=== PATIENT | female | born 1970 | race Caucasian/White ===

== ENCOUNTER 2021-05-21 14:18 | Outpatient (CLI) | payer MEDICAID, SELFPAY ==
--- NOTE | 2021-05-21 14:25 | XR_ITS ---
WS: [id number] Left shoulder, 3 views, 05/21/2021 Clinical Data: IMPINGEMENT SYNDROME OF LEFT SHOULDER Comparison: None. Findings: No fractures or dislocations are seen. The AC joint is normal. The adjacent left clavicle, left scapu la and ribs are normal. The soft tissues are unremarkable. There is a metal artifact overlying the left fifth rib which is probably on the patient's clothing. XR/XR shoulder LT min 2V* [id number] Impression: Negative left shoulder.
== END 2021-05-21 14:19 | disposition home or self-care (01) ==
PROVIDERS: PCP Family Medicine; Visit Provider Family Medicine
DX: M75.42 Impingement syndrome of left shoulder (principal)
CPT/HCPCS: 73030

== ENCOUNTER 2021-05-25 11:41 | Emergency (ER) | payer MEDICAID, SELFPAY ==
[2021-05-25 11:53] VITALS: BP 132/80; PULSE 84; RESP 14; TEMP 36.9; O2SAT 96; BMI 34.4
--- NOTE | 2021-05-25 12:03 | XR_ITS ---
WS: [id number] Exam: XR chest 1V portable [id number] Date/Time of Exam: 05/25/2021 12:18 PM Reason For Exam: chest pain Comparison 01/17/2015. Findings: The lungs are clear and fully expanded. Costophrenic angles are sharp. No infiltrates. Bronchovascula r relief appears normal. Cardiac silhouette is unremarkable. Bony elements are intact. XR/XR chest 1V portable [id number] IMPRESSION: Unremarkable chest radiograph.
--- NOTE | 2021-05-25 12:03 | ECG_ITS ---
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1970 Requested By: Sona Gomez Order Number: [id number] Pam MD: ARTEMIO GALLARDO Measurements Intervals [place] Rate: 83 P: 38 ID: [id number] QRS: -28 QRSD: 97 T: 112 QT: 373 QTc: 439 Interpretive Statements SINUS RHYTHM BORDERLINE LEFT AXIS DEVIATION [QRS AXIS < -20] VOLTAGE CRITERIA FOR LVH [MEETS CRITERIA IN ONE OF: R(aVL), S(V1), R(V5), R(V5/V6)+S(V1)] MODERATE T-WAVE ABNORMALITY, CONSIDER LATERAL ISCHEMIA [-0.1+ mV T-WAVE IN I/aVL/V5/V6] Compared to ECG 01/17/2015 16:26:24 Left ventricular hypertrophy now present T-wave abnormality now present Possible ischemia now present Electronically Signed On 05-25-2021 19:58:19 [employer]PA[employer] by ARTEMIO GALLARDO [id number]
--- NOTE | 2021-05-25 14:03 | ECG_ITS ---
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1970 Requested By: Sona Gomez Order Number: [id number] Reading MD: ARTEMIO GALLARDO Measurements Intervals [place] Rate: 77 P: 49 [place]: 186 QRS: -39 QRSD: 100 T: 58 QT: 403 QTc: 457 Interpretive Statements SINUS RHYTHM LEFT AXIS DEVIATION [QRS AXIS < -30] NONSPECIFIC T-WAVE ABNORMALITY Compared to ECG 05/25/2021 12:05:30 Left ventricular hypertrophy no longer present Possible ischemia no longer present T-wave abnormality still present Electronically Signed On 05-25-2021 20:08:45 [employer] by ARTEMIO GALLARDO [id number]
[2021-05-25 14:05] LABS: Basophils % 0.5 %; Eosinophils # 0.3 10^3/uL (0.0-0.8); Eosinophils % 3.5 %; Hematocrit 43.1 % (37.0-47.0); Hemoglobin 14.2 g/dL (11.5-15.3); Lymphocytes # 1.6 10^3/uL (0.8-4.8); Lymphocytes % 18.3 %; Mean Corpuscular HGB Conc 32.9 g/dL (30.0-36.0); Mean Corpuscular Hemoglobin 26.3 pg (28.0-34.0); Mean Platelet Volume 11.4 fL (7.4-10.4); Monocytes # 0.6 10^3/uL (0.2-0.9); Neutrophils # 6.03 10^3/uL (1.8-7.7); Neutrophils % 70.3 %; Nucleated Red Blood Cells % 0 %; Platelet Count 292 10^3/cmm (130-400); Red Blood Count 5.39 10^6/uL (4.1-5.3); Red Cell Distribution Width 13.7 % (12.1-15.1); White Blood Count 8.6 10^3/uL (4.0-10.0)
[2021-05-25 14:46] LABS: Alanine Aminotransferase 28 U/L (0-33); Albumin Level 4.3 g/dL (3.5-5.2); Alkaline Phosphatase 79 IU/L (35-105); Anion Gap 19.6 (5-19); Aspartate Amino Transferase 22 U/L (0-32); Blood Urea Nitrogen 9 mg/dL (6-20); Calcium 9.2 mg/dL (8.5-10.5); Carbon Dioxide 26 mmol/L (22-29); Chloride 97 mmol/L (98-107); Globulin 3.4 g/dL (1.3-4.6); Glomerular Filtration Rate 75.6 mL/min (90-130); Glucose 112 mg/dL (65-115); Osmolality Calculated 287 mOsm/kg (285-295); Potassium 3.6 mmol/L (3.5-5.1); Sodium 139 mmol/L (136-145); Total Bilirubin 0.4 mg/dL (0.15-1.2); Total Protein 7.7 g/dL (6.6-8.7)
[2021-05-25 14:57] LABS: Troponin(5th) Baseline 16 ng/L (0-10)
[2021-05-25 16:45] VITALS: BP 139/78; PULSE 90; RESP 18; O2SAT 99
[2021-05-25 17:27] LABS: Troponin 5 2HR 16.11 ng/L (0-10); Troponin 5 2HR Delta 0.11 ABS# (0-10)
--- NOTE | 2021-05-25 17:47 | W.ED.CHESTPA ---
HPI - Chest Pain General: Chief Complaint: Chest Pain Stated Complaint: CHEST & ARM PAIN/COUGH Time Seen by Provider: 05/25/21 17:37 History of Present Illness: HPI narrative: 51-year-old female presents emergency room complaining of chest pain and she has had for about 6 to 8 hours. She states pain is worse when she takes a deep breath or when she palpates across the chest on the right upper sternal border. She has had cough which she attributes to her asthma and low-grade fever cough is been nonproductive she denies any diarrhea. She denies any myalgias denies any anosmia. She has not been vaccinated for Covid nor is she previously tested positive. MD complaint: chest discomfort Onset (ago): hour(s) Timing of current episode: episodic Onset: during rest Pain location: left chest Pain radiation: left arm (Tingling) Severity: mild Quality: aching Relieving factors: rest Exacerbating factors: inspiration and palpation Associated symptoms: Deny abdominal pain, diaphoresis, dyspnea, fever(s), leg edema, nausea, palpitations, sense of impending doom, syncope or vomiting Treatment prior to arrival: none Review of Systems Const: Denies: fever(s) or diaphoresis ENMT: Denies: throat pain, ear or mastoid pain, nasal discharge or nasal congestion Card: Denies: palpitations or syncope Resp: Denies: dyspnea GI: Denies: abdominal pain, nausea or vomiting : Denies: flank pain, difficulty voiding, dysuria, urinary frequency or urinary urgency Skin/Breast: Denies: rash or pruritus Physical Exam Const: COMMON NORMALS: no acute distress GENERAL APPEARANCE: cooperative and comfortable ORIENTATION/CONSCIOUSNESS: Yes awake, Yes oriented to person, Yes oriented to place and Yes oriented to time HENMT: COMMON NORMALS: normocephalic, atraumatic and hearing grossly normal bilaterally HEAD & SCALP: normocephalic and atraumatic Neck/C-Spine: COMMON NORMALS: no JVD Resp: COMMON NORMALS: normal respiratory effort, No retractions, No use of accessory muscles and clear to auscultation bilaterally AUSCULTATION: clear to auscultation bilaterally Cardio: COMMON NORMALS: no JVD, regular rate, regular rhythm and No murmurs present (Cardio) RATE: regular rate RHYTHM: regular rhythm GI: COMMON NORMALS: Soft to palpation and No hepatosplenomegaly present AUSCULTATION: Yes normoactive bowel sounds PALPATION: Yes Soft to palpation, No Tenderness to palpation present (GI), No Guarding due to palpation present (GI) and Yes No hepatosplenomegaly present Extremity: COMMON NORMALS: normal to inspection, capillary refill normal, no clubbing, cyanosis or edema, no calf tenderness and no pedal edema Neuro: SENSORIUM/ORIENTATION: Yes oriented to person, Yes oriented to place and Yes oriented to time Skin: COMMON NORMALS: no rashes or lesions noted GENERAL SKIN EXAM: no rashes or lesions noted Course Vital Signs: Vital signs: Vital Signs Temperature 98.4 F 05/25/21 11:53 Pulse Rate 90 05/25/21 16:45 Respiratory Rate 18 05/25/21 16:45 Blood Pressure 139/78 05/25/21 16:45 Pulse Oximetry 99 05/25/21 16:45 MDM - Chest Pain MDM Narrative: Medical decision making narrative: Troponins unremarkable EKGs labs and imaging reviewed as found on the chart. Discussed with the patient. I am suspicious she may have Covid we have a PCR send out will wait until that is completed and then if it is negative set her up first Lexiscan sestamibi stress test she does have some asthma issues that may be a cause of some of her symptoms we will have her use a Medrol Dosepak and albuterol as needed I am going to ask her to start baby aspirin a day. She has worsening or change return to the emergency room. Lab Data: Labs: Lab Results 05/25/21 05/25/21 05/25/21 13:54 13:54 13:54 WBC 8.6 10^3/uL 10^3/ uL (4.0-10.0) RBC 5.39 10^6/uL H 10 ^6/uL (4.1-5.3) Hgb 14.2 g/dL g/dL (11.5-15.3) Hct 43.1 % % (37.0-47.0) MCV 80.0 fl L fl (81-99) MCH 26.3 pg L pg (28.0-34.0) MCHC 32.9 g/dL g/dL (30.0-36.0) RDW 13.7 % % (12.1-15.1) Plt Count 292 10^3/cmm 10^3 /cmm (130-400) MPV 11.4 fL H fL (7.4-10.4) Neut % (Auto) 70.3 % % Lymph % (Auto) 18.3 % % Wise % (Auto) 7.0 % % Eos % (Auto) 3.5 % % Baso % (Auto) 0.5 % % Neut # (Auto) 6.03 10^3/uL 10^3 /uL (1.8-7.7) Lymph # (Auto) 1.6 10^3/uL 10^3/ uL (0.8-4.8) Wise # (Auto) 0.6 10^3/uL 10^3/ uL (0.2-0.9) Eos # (Auto) 0.3 10^3/uL 10^3/ uL (0.0-0.8) Baso # (Auto) 0.0 10^3/uL 10^3/ uL (0.0-0.1) Nucleated RBC % (a uto) 0 % % Nucleated RBCs # 0.0 /100WBC /100W BC Sodium 139 mmol/L mmol/L (136-145) Potassium 3.6 mmol/L mmol/L (3.5-5.1) Chloride 97 mmol/L L mmol/ L (98-107) Carbon Dioxide 26 mmol/L mmol/L (22-29) Anion Gap 19.6 H (5-19) BUN 9 mg/dL mg/dL (6-20) Creatinine 0.8 mg/dL mg/dL (0.5-0.9) GFR Calculation 75.6 mL/min L mL/ min (90-130) Glucose 112 mg/dL mg/dL (65-115) Calculated Osmolal ity 287 mOsm/kg mOsm/ kg (285-295) Calcium 9.2 mg/dL mg/dL (8.5-10.5) Total Bilirubin 0.4 mg/dL mg/dL (0.15-1.2) AST 22 U/L U/L (0-32) ALT 28 U/L U/L (0-33) Alkaline Phosphata se 79 IU/L IU/L (35-105) Troponin T Baselin e 16 ng/L H ng/L (0-10) Troponin T 120 Min ag[place] Delta Troponin T Total Protein 7.7 g/dL g/dL (6.6-8.7) Albumin 4.3 g/dL g/dL (3.5-5.2) Globulin 3.4 g/dL g/dL (1.3-4.6) 05/25/21 16:41 WBC RBC Hgb Hct MCV MCH MCHC RDW Plt Count MPV Neut % (Auto) Lymph % (Auto) Wise % (Auto) Eos % (Auto) Baso % (Auto) Neut # (Auto) Lymph # (Auto) Wise # (Auto) Eos # (Auto) Baso # (Auto) Nucleated RBC % (a uto) Nucleated RBCs # Sodium Potassium Chloride Carbon Dioxide Anion Gap BUN Creatinine GFR Calculation Glucose Calculated Osmolal ity Calcium Total Bilirubin AST ALT Alkaline Phosphata se Troponin T Baselin e Troponin T 120 Min [place] 16.11 ng/L H ng/L (0-10) Delta Troponin T 0.11 ABS# ABS# (0-10) Total Protein Albumin Globulin Discharge Plan Discharge Patient Disposition: Home Clinical Impression: Atypical chest pain, Clinical diagnosis of COVID-19 Condition: Stable Prescriptions: New Medrol (Sotero) 4 mg tablets,dose pack See Rx Instructions .ROUTE .COMPLEX Qty: 21 RF: 0 albuterol sulfate 90 mcg/actuation HFA aerosol inhaler 2 inh INHALATION Q4H PRN (Reason: shortness of breath or wheezing) Qty: 18 RF: 0 aspirin 81 mg tablet,delayed release (DR/EC) 81 mg PO DAILY Qty: 30 RF: 0 Discharge Orders: Discharge ED (Routine); Ordered 05/25/21 Ordered By: Gurvinder Swanson Discharge Diet: Usual diet Discharge Activity: Limit activity as instructed Patient Instructions: Opioid Safety Activity Restrictions/Additional Instructions: public events facilities rental manager will call to make appointment for you to have a Lexiscan sestamibi stress test once your Covid test has resulted. If the Covid test is positive the stress test will have to wait until after the Covid has resolved. Use the prescribed medicines above to treat your symptoms. 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
--- NOTE | 2021-05-27 09:22 | DCPLANNER ---
Addendum entered by Maria Teresa Butler 07/01/21 15:19: Amy from centralized scheduling emailed power plant operators supervisor that patients insurance denied the order for stress test for patient. licensed psychologist manager called patient and informed patient that insurance denied the stress test. licensed psychologist manager encouraged patient that if she was still having issues to see her primary care provider. Original Note: licensed psychologist manager had message to schedule an outpatient stress test for patient. licensed psychologist manager faxed signed order to centralized scheduling, who will call patient with appointment information.
== END 2021-05-25 19:00 | disposition home or self-care (01) ==
PROVIDERS: Physician Assistant; Emergency Provider Family Medicine
DX: R07.89 Other chest pain (principal); U07.1 COVID-19; Z79.82 Long term (current) use of aspirin
CPT/HCPCS: 36415; 71045; 80053; 84484; 85025; 93005; 99282

== ENCOUNTER → 2021-08-26 11:39 | Outpatient (BNVA) | payer MEDICAID, SELFPAY | PROVIDERS: Visit Provider Family Medicine | DX: Z01.812 Encounter for preprocedural laboratory examination (principal); Z20.822 Contact with and (suspected) exposure to COVID-19 | CPT/HCPCS: 87635 ==

== ENCOUNTER 2021-09-08 10:44 | Outpatient (CLI) | payer MEDICAID, SELFPAY ==
--- NOTE | 2021-09-08 10:52 | MM_ITS ---
WS: [id number] SCREENING 3D TOMOSYNTHESIS DIGITAL MAMMOGRAM WITH CAD HISTORY: SCREENING COMPARISON: None available. Bilateral CC and MLO views submitted. Computer aided detection analyzed. Breast composition: There are scattered areas of fibroglandular density. No suspicious masses, microc alcifications or architectural distortion. MM/[place] [id number] IMPRESSION: BI-RADS: 1-Negative FOLLOW UP: 1 Year Follow-up
== END 2021-09-08 10:45 | disposition home or self-care (01) ==
PROVIDERS: Visit Provider Family Medicine
DX: Z12.31 Encounter for screening mammogram for malignant neoplasm of breast (principal)
CPT/HCPCS: 77063; 77067

== ENCOUNTER → 2021-09-09 11:48 | Outpatient (BNVA) | payer MEDICAID, SELFPAY | PROVIDERS: PCP Family Medicine; Visit Provider Internal Medicine | DX: R06.02 Shortness of breath (principal); I10 Essential (primary) hypertension; R07.9 Chest pain, unspecified | CPT/HCPCS: 99204 ==

== ENCOUNTER 2021-10-06 12:56 | Outpatient (RCR) | payer MEDICAID, SELFPAY | END 2021-10-16 23:59 | disposition home or self-care (01) | LOC: SPT 12:56 | PROVIDERS: PCP Family Medicine; Referring Provider Family Medicine; Visit Provider Family Medicine | DX: M75.42 Impingement syndrome of left shoulder (principal); G89.29 Other chronic pain; M54.2 Cervicalgia | CPT/HCPCS: 97161 ==

== ENCOUNTER 2021-10-17 06:00 | Outpatient (RCR) | payer MEDICAID, SELFPAY | END 2021-11-16 23:59 | disposition home or self-care (01) | LOC: SPT 06:00 | PROVIDERS: PCP Family Medicine; Referring Provider Family Medicine; Visit Provider Family Medicine | DX: M75.42 Impingement syndrome of left shoulder (principal); G89.29 Other chronic pain; M54.2 Cervicalgia | CPT/HCPCS: 97110 ==

== ENCOUNTER 2021-11-17 06:00 | Outpatient (RCR) | payer MEDICAID, SELFPAY | END 2021-12-16 23:59 | disposition home or self-care (01) | LOC: SPT 06:00 | PROVIDERS: PCP Family Medicine; Referring Provider Family Medicine; Visit Provider Family Medicine | DX: M75.42 Impingement syndrome of left shoulder (principal); G89.29 Other chronic pain; M54.2 Cervicalgia | CPT/HCPCS: 97110 ==

== ENCOUNTER 2021-12-17 06:00 | Outpatient (RCR) | payer MEDICAID, SELFPAY | END 2022-01-16 23:59 | disposition home or self-care (01) | LOC: SPT 06:00 | PROVIDERS: PCP Family Medicine; Referring Provider Family Medicine; Visit Provider Family Medicine | DX: M25.512 Pain in left shoulder (principal); M54.2 Cervicalgia | CPT/HCPCS: 97110 ==

== ENCOUNTER 2022-02-17 20:00 | Outpatient (CLI) | payer MEDICAID, SELFPAY | END 2022-02-17 20:01 | disposition home or self-care (01) | LOC: SLEEP 02-18 06:56 | PROVIDERS: PCP Family Medicine; Visit Provider Pediatrics | DX: G47.33 Obstructive sleep apnea (adult) (pediatric) (principal); R53.83 Other fatigue | CPT/HCPCS: 95811 ==

== ENCOUNTER 2022-02-24 07:22 | Day surgery (SDC) | payer MEDICAID, SELFPAY ==
[2022-02-23 08:42] VITALS: BMI 36.5
--- NOTE | 2022-02-24 07:48 | W.PM.OPSFHP ---
Same Day Surgery H&P Indication for Procedure/HPI DATE OF PROCEDURE: February 24, 2022 CHIEF COMPLAINT/INDICATIONFOR SURGICAL PROCEDURE: Screening colonoscopy PREOP DIAGNOSIS: Screening colonoscopy PLANNED PROCEDURE: Operation Date: 02/24/22 09:00 Proposed Procedures p Colonoscopy 39561,Z12.11(Not Applicable) - Vinayak Horta MD This is a pleasant 51 years old female patient referred to my practice for screening colonoscopy. She never had a colonoscopy before and denies bleeding per rectum or history of colon cancer. ROS All systems have been reviewed negative except as for the above or per problem list. Medications/Allergies* Home Medications Medication Instructions Recorded Confirmed Type amlodipine 10 mg tablet 10 mg PO DAILY 09/09/21 02/24/22 History escitalopram oxalate 20 mg tablet 20 mg PO DAILY 09/09/21 02/24/22 History fexofenadine 180 mg tablet 180 mg PO DAILY 09/09/21 02/24/22 History (Shima Allergy) fluticasone propionate 50 1 spray intranasal DAILY 09/09/21 02/24/22 History mcg/actuation nasal spray,suspension (Flonase Allergy Relief) hydrochlorothiazide 25 mg tablet 25 mg PO DAILY 09/09/21 02/24/22 History ibuprofen 200 mg tablet 600 mg PO BID 09/09/21 02/24/22 History lisinopril 20 mg tablet 20 mg PO DAILY 09/09/21 02/24/22 History mometasone-formoterol HFA 200 2 puff inhalation BID 09/09/21 02/24/22 History mcg-5 mcg/actuation aerosol inhaler (Dulera) montelukast 10 mg tablet 10 mg PO DAILY 09/09/21 02/24/22 History (Singulair) famotidine 20 mg tablet 20 mg PO BID 02/23/22 02/24/22 History Allergies/Adverse Reactions Allergy/AdvReac Type Severity Reaction Status Date / Time Penicillins Allergy Unknown Unknown Verified 02/24/22 08:57 ammonia Allergy ALGY-Rash Verified 02/24/22 08:57 Bleach (Sodium Hypochlorite) Allergy ALGY-Difficulty Verified 02/24/22 08:57 Breathing latex Allergy ALGY-Rash Verified 02/24/22 08:57 Pertinent History/Comorbid Conditions* Medical History (Updated 09/09/21 @ 13:16 by Lyle Paz M.D) HTN (hypertension) Psychiatric care Social History Smoking and tobacco status: never smoked Alcohol intake: never Pertinent Exam Findings alert, oriented x 3, clear to auscultation bilaterally, regular rate & rhythm and procedure specific exam findings (Abdominal examination nontender nondistended soft obese) Recommendations Surgery/Procedure today (Colonoscopy with possible biopsy) Other Plans: Plan of care; After thorough history and physical examination and reviewing the chart, plan to perform screening colonoscopy. I discussed with the patient in details the risks,benefits,alternatives and indications.The risk of aspiration, bleeding, soft tissue injury, perforation of the colon and other potential concomitant complications were explained to the patient in details,also the potential need for Laproscoy/Laparotomy to repair any related complications including but not limited to colectomy and or Closotomy.The patient understood this well and did agree to proceed. Rationale was carefully and clearly discussed with the patient.Appropriate informed consent have been reviewed and signed All questions have been answered and all concerns have been addressed to patient's satisfaction. 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
[2022-02-24 08:00] VITALS: BP 139/90; PULSE 92; RESP 16; TEMP 36.6; O2SAT 97
[2022-02-24] MEDS: sodium chloride 0.9% 1,000 ML 30 ML IV (08:14)
--- NOTE | 2022-02-24 09:09 | P.ANESASSM_ITS ---
Pre-Anesthetic Assessment Height/Weight: Height 1.73 m Weight 108.862 kg Temp Pulse Resp BP Pulse Ox O2 Del Method 97.8 F 92 16 139/90 97 02/24/22 08:00 02/24/22 08:00 02/24/22 08:00 02/24/22 08:00 02/24/22 08:00 02/24/22 08:00 Preop Diagnosis: Screening colonoscopy Operation Date: 02/24/22 09:00 Proposed Procedures p Colonoscopy 37881,Z12.11(Not Applicable) - Vinayak Horta MD Familial anesthetic complications: None Was Beta Irvin taken within 24 hours: N/A Was Clonidine taken within 24 hours: N/A Last intake: Intake Last Liquid Date 02/23/22 Last Liquid Time 22:30 Last Solid Date 02/22/22 Last Solid Time 11:00 Last Intake: 22:30 (02/23/22) Social No alcohol and No tobacco Exam alert, oriented x 3, clear to auscultation bilaterally and regular rate & rhythm Airway Submandibular: within normal limits Cervical ROM: within normal limits Mallampati: Class III Dentition: chipped (Several missing and rotting teeth. Supposed to have all teeth extracted on the of this month) History/ROS No significant history except as noted and No significant complaints Pulmonary Asthma (30% use of lungs per patient. Unsure of etiology), Chronic Obstructive Pulmonary Disease and Sleep Apnea (Does not use CPAP) CV/HEM Stable Angina (Has never used her nitroglycerin medication) and Palpitations None reported Hepatic None reported GI None reported Metabolic Diabetes Mellitus (Pre-diabetic per patient) and Morbid Obesity [facility] [place] Lower Back Pain Neuropsych Anxiety, Depression and Neuropathy Anesthetic Plan ASA status: 3 Anesthesia: Anesthesia Evaluation, General and MAC Risk of > 500 ml blood loss (7ml/kg in children): No Medications/Allergies Home Medications Medication Instructions Recorded Confirmed Last Taken Type albuterol sulfate 90 mcg/actuation 2 inh inhalation Q4H PRN shortness 05/25/21 02/24/22 02/23/22 Rx aerosol inhaler of breath or wheezing #18 grams aspirin 81 mg tablet,delayed 81 mg PO DAILY #30 tabs 05/25/21 02/24/22 02/23/22 Rx release amlodipine 10 mg tablet 10 mg PO DAILY 09/09/21 02/24/22 02/23/22 History escitalopram oxalate 20 mg tablet 20 mg PO DAILY 09/09/21 02/24/22 02/23/22 History fexofenadine 180 mg tablet 180 mg PO DAILY 09/09/21 02/24/22 02/23/22 History (Shima Allergy) fluticasone propionate 50 1 spray intranasal DAILY 09/09/21 02/24/22 02/23/22 History mcg/actuation nasal spray,suspension (Flonase Allergy Relief) hydrochlorothiazide 25 mg tablet 25 mg PO DAILY 09/09/21 02/24/22 02/23/22 History ibuprofen 200 mg tablet 600 mg PO BID 09/09/21 02/24/22 02/22/22 History lisinopril 20 mg tablet 20 mg PO DAILY 09/09/21 02/24/22 02/10/22 History mometasone-formoterol HFA 200 2 puff inhalation BID 09/09/21 02/24/22 02/23/22 History mcg-5 mcg/actuation aerosol inhaler (Dulera) montelukast 10 mg tablet 10 mg PO DAILY 09/09/21 02/24/22 02/23/22 History (Singulair) nitroglycerin 0.4 mg sublingual 0.4 mg sublingual Q5M PRN chest 09/09/21 02/24/22 Unknown Rx tablet pain #25 tabs famotidine 20 mg tablet 20 mg PO BID 02/23/22 02/24/22 02/23/22 History Allergies Allergy/AdvReac Type Severity Reaction Status Date / Time Penicillins Allergy Unknown Unknown Verified 02/24/22 08:57 ammonia Allergy ALGY-Rash Verified 02/24/22 08:57 Bleach (Sodium Hypochlorite) Allergy ALGY-Difficulty Verified 02/24/22 08:57 Breathing latex Allergy ALGY-Rash Verified 02/24/22 08:57 Current Medications Generic Name Dose Route Start Last Admin Trade Name Freq PRN Reason Stop Dose Admin Sodium Chloride 1,000 mls @ 30 mls/hr 02/24/22 07:45 02/24/22 08:14 Sodium Chloride 0.9% IV 02/25/22 07:44 30 mls/hr .Q24H DEEPAK Administration PFSH Anesthesia Medical History (Updated 09/09/21 @ 13:16 by Lyle Paz M.D) HTN (hypertension) Psychiatric care Social History Smoking and tobacco status: never smoked Alcohol intake: never Female Reproductive History Date of last menstrual period: 02/23/22 Data Anesthesia Cardiac Studies: No Data to Display
[2022-02-24 09:30] LABS: OR HCG Qualitative Urine Negative (Negative)
[2022-02-24 09:51] VITALS: BP 111/68; PULSE 70; RESP 16; TEMP 36.3; O2SAT 97
[2022-02-24 10:01] VITALS: BP 111/80; PULSE 66; RESP 16; O2SAT 95
== END 2022-02-24 10:16 | disposition home or self-care (01) ==
PROVIDERS: Anesthesiology; PCP Family Medicine; Visit Provider Surgery
PROC: 0DJD8ZZ Inspection of Lower Intestinal Tract, Via Natural or Artificial Opening Endoscopic (ICD-10-PCS; CPT 45378; principal; 2022-02-24 09:00)
DX: Z12.11 Encounter for screening for malignant neoplasm of colon (principal); I10 Essential (primary) hypertension; J44.9 Chronic obstructive pulmonary disease, unspecified; G47.30 Sleep apnea, unspecified; R73.03 Prediabetes; E66.01 Morbid (severe) obesity due to excess calories; Z68.36 Body mass index [BMI] 36.0-36.9, adult; Z79.51 Long term (current) use of inhaled steroids; Z88.0 Allergy status to penicillin; Z91.040 Latex allergy status
CPT/HCPCS: 45378; 84703; J2704; J7030

== ENCOUNTER 2022-11-18 11:15 | Outpatient (CLI) | payer MEDICAID, SELFPAY ==
--- NOTE | 2022-11-18 11:21 | MM_ITS ---
WS: [email or web address] VIEWS: MLO and CC views both breasts. 3D digital tomosynthesis is also included in this exam. Comparison made with prior exam of 09/08/2021. Findings: There was no sign of mass, architectural distortion or suspicious calcification in either breast. Sc attered areas of fibroglandular density MM/[place] [id number] Impression: BI-RADS: 2-Benign finding. FOLLOW-UP: 1 Year Follow-up This mammogram was also analyzed by the Computer Aided Detection System R2 Imag e Net Sql Developer.
== END 2022-11-18 11:16 | disposition home or self-care (01) ==
LOC: RAD 11:18
PROVIDERS: PCP Family Medicine; Visit Provider Family Medicine
DX: Z12.31 Encounter for screening mammogram for malignant neoplasm of breast (principal)
CPT/HCPCS: 77063; 77067

== ENCOUNTER 2024-02-24 15:10 | Emergency (ER) | payer MEDICARE, MEDICAID, SELFPAY ==
[2024-02-24 15:44] VITALS: BP 127/80; PULSE 74; RESP 17; TEMP 36.6; O2SAT 98; BMI 36.0
--- NOTE | 2024-02-24 16:18 | CTR_ITS ---
PROCEDURE INFORMATION: Exam: CT Maxillofacial Without Contrast Exam date and time: 02/24/2024 4:27 PM Age: 53 years old Clinical indication: Injury or trauma; Fall; Blunt trauma (contusions or hematomas); Nose; Additional info: Fall/nose bleeds/facial trauma TECHNIQUE: Imaging protocol: Computed tomography of the face without contrast. Radiation optimization: All CT scans at this facility use at least one of these dose optimization techniques: automated exposure control; mA and/or kV adjustment per patient size (includes targeted exams where dose is matched to clinical indication); or iterative reconstruction. COMPARISON: CT cervical spin wo con* [id number] 02/24/2024 4:27 PM RADIATION DOSE METRICS: Total DLP (mGy-cm): 605.9 FINDINGS: Orbital cavities: Orbits are normal. Globes are unremarkable. Paranasal sinuses: Mild bilateral maxillary sinus mucosal thickening. Bones: No acute fracture. Edentulous maxilla and mandible. Soft tissues: Unremarkable. CT/CT facial bones wo con* [id number] IMPRESSION: No acute facial bone fracture.
--- NOTE | 2024-02-24 16:18 | CTR_ITS ---
PROCEDURE INFORMATION: Exam: CT Cervical Spine Without Contrast Exam date and time: 02/24/2024 4:27 PM Age: 53 years old Clinical indication: Injury or trauma; Fall; Blunt trauma; Additional info: Fall/pain TECHNIQUE: Imaging protocol: Computed tomography of the cervical spine without contrast. Radiation optimization: All CT scans at this facility use at least one of these dose optimization techniques: automated exposure control; mA and/or kV adjustment per patient size (includes targeted exams where dose is matched to clinical indication); or iterative reconstruction. COMPARISON: CT facial bones wo con* [id number] 02/24/2024 4:27 PM RADIATION DOSE METRICS: Total DLP (mGy-cm): 1134.3 FINDINGS: Bones: No acute fracture or traumatic listhesis. Multilevel degenerative changes, notably at the C5-C6 disc space. No severe spinal canal or neural foraminal narrowing. Lungs: Lung apices are unremarkable. Soft tissues: Unremarkable. CT/CT cervical spin wo con* [id number] IMPRESSION: No acute cervical spine findings.
--- NOTE | 2024-02-24 16:38 | W.ED.FALL ---
HPI - Fall General: Chief Complaint: Fall Stated Complaint: nose bleed s/p fall Time Seen by Provider: 02/24/24 16:06 Source: patient Mode of arrival: ambulatory Limitations: no limitations History of Present Illness: Patient is a 53-year-old female presents the emergency department after a fall earlier today. States she was walking up from [facility] and was walking up her steps when she tripped and fell forward, catching herself with both hands but also hitting her face in the process. She has had intermittent episodes of epistaxis, but does arrive to the emergency department with bleeding controlled at this time. Is reporting some facial pain, primarily to the maxillary region. Denies losing consciousness and states she eventually was able to get up on her own. States this is the second fall she has had recently, both have been reported to be accidental and she has not had any symptoms prior. Also was reporting some abrasions to her right knee and bilateral hands, but no underlying joint pain. MD complaint: fall Fall from: standing Fall witnessed: no Place fall occurred: home Loss of consciousness: None Prolonged down time: no Symptoms prior to fall: none Context: tripped/slipped Location of injury: face Associated symptoms-after fall: Denies abdominal pain, chest pain, headache(s), lightheadedness or neck pain Related Data Home Medications Medication Instructions Recorded Confirmed amlodipine 10 mg tablet 10 mg PO DAILY 09/09/21 02/24/22 escitalopram oxalate 20 mg tablet 20 mg PO DAILY 09/09/21 02/24/22 fexofenadine 180 mg tablet 180 mg PO DAILY 09/09/21 02/24/22 (Shima Allergy) fluticasone propionate 50 1 spray intranasal DAILY 09/09/21 02/24/22 mcg/actuation nasal spray,suspension (Flonase Allergy Relief) hydrochlorothiazide 25 mg tablet 25 mg PO DAILY 09/09/21 02/24/22 ibuprofen 200 mg tablet 600 mg PO BID 09/09/21 02/24/22 lisinopril 20 mg tablet 20 mg PO DAILY 09/09/21 02/24/22 mometasone-formoterol HFA 200 2 puff inhalation BID 09/09/21 02/24/22 mcg-5 mcg/actuation aerosol inhaler (Dulera) montelukast 10 mg tablet 10 mg PO DAILY 09/09/21 02/24/22 (Singulair) famotidine 20 mg tablet 20 mg PO BID 02/23/22 02/24/22 Previous Rx's Medication Instructions Recorded albuterol sulfate 90 mcg/actuation 2 inh inhalation Q4H PRN shortness 05/25/21 aerosol inhaler of breath or wheezing #18 grams aspirin 81 mg tablet,delayed 81 mg PO DAILY #30 tabs 05/25/21 release nitroglycerin 0.4 mg sublingual 0.4 mg sublingual Q5M PRN chest 09/09/21 tablet pain #25 tabs Allergies Allergy/AdvReac Type Severity Reaction Status Date / Time Penicillins Allergy Unknown Unknown Verified 02/24/24 15:49 ammonia Allergy ALGY-Rash Verified 02/24/24 15:49 Bleach (Sodium Hypochlorite) Allergy ALGY-Difficulty Verified 02/24/24 15:49 Breathing latex Allergy ALGY-Rash Verified 02/24/24 15:49 hand back end developer Allergy ALGY-Wheezi Uncoded 02/24/24 15:49 ng Review of Systems General: Reports: 10 or more systems reviewed and unremarkable except in HPI and below Const: Reports: other (Fall); Denies: fever(s), chills or fatigue Eyes: Denies: change in vision ENMT: Reports: epistaxis and sinus pain; Denies: throat pain, ear or mastoid pain or nasal discharge Card: Denies: chest pain, palpitations, swelling of feet/ankles or lightheadedness Resp: Denies: dyspnea, productive cough or wheezing GI: Denies: abdominal pain, nausea, vomiting, diarrhea or constipation : Denies: flank pain, difficulty voiding, dysuria or urinary frequency Musc: Denies: neck pain, back pain or joint pain Skin/Breast: Reports: new lesions (Abrasions to right knee, and bilateral hands); Denies: rash Neuro: Denies: headache(s), numbness in extremities or weakness in extremities PFSH ED PFSH: Medical History HTN (hypertension) Social History Smoking and tobacco/nicotine status: never used tobacco/nicotine Alcohol intake: never Physical Exam Const: COMMON NORMALS: no acute distress, patient oriented x3 and no limitations GENERAL APPEARANCE: cooperative, comfortable and well developed ORIENTATION/CONSCIOUSNESS: Yes awake, Yes oriented to person, Yes oriented to place and Yes oriented to time HENMT: COMMON NORMALS: normocephalic, atraumatic and hearing grossly normal bilaterally HEAD & SCALP: normocephalic and atraumatic OTHER: Dried blood bilateral naris. Tenderness to palpation of the maxillary region, as well as to the right mandibular region. No signs of facial deformity. Scalp nontender to palpation with no signs of injury. Eye: COMMON NORMALS: Equal, round and reactive pupils present, EOMs intact bilaterally and conjunctivae normal CONJUNCTIVA: Yes conjunctivae normal PUPIL: Yes Equal, round and reactive pupils present Neck/C-Spine: COMMON NORMALS: full ROM, supple and no JVD Resp: COMMON NORMALS: normal respiratory effort, No retractions, No use of accessory muscles and clear to auscultation bilaterally AUSCULTATION: clear to auscultation bilaterally Cardio: COMMON NORMALS: no JVD, regular rate, regular rhythm, No clicks present (Cardio), No murmurs present (Cardio) and No rub (Cardio) RATE: regular rate RHYTHM: regular rhythm GI: COMMON NORMALS: Normal to inspection, nondistended, normoactive bowel sounds present, Soft to palpation and non-tender AUSCULTATION: Yes normoactive bowel sounds PALPATION: Yes Soft to palpation RECTAL EXAM: deferred Extremity: COMMON NORMALS: normal to inspection, full ROM and capillary refill normal NARRATIVE EXTREMITY EXAM: All joints palpated and nontender Neuro: COMMON NORMALS: patient oriented x3, CN's II-XII intact bilaterally, moves all extremities, no focal motor deficits and no sensory deficits noted SENSORIUM/ORIENTATION: Yes oriented to person, Yes oriented to place and Yes oriented to time Psych: COMMON NORMALS: mental status grossly normal and Normal thought process present THOUGHT PROCESS: Normal thought process present Skin: NARRATIVE SKIN EXAM: Superficial abrasion to anterior right knee, palmar aspect of right hand, and palmar aspect of left hand. Course Vital Signs: Vital signs: Vital Signs Temperature 97.8 F 02/24/24 15:44 Pulse Rate 69 02/24/24 17:49 Respiratory Rate 16 02/24/24 17:49 Blood Pressure 157/92 02/24/24 17:49 Pulse Oximetry 98 02/24/24 17:49 Oxygen Delivery Me thod Room Air 02/24/24 15:44 MDM - Fall Medical Decision Making Patient presented after falling on her face prior to arrival. Had abrasions to her right knee and both hands, primary concern was nosebleeds from hitting her nose on the ground. Bleeding was controlled on arrival and her vitals unremarkable. Did not have any underlying bony or joint tenderness throughout her body, so x-ray was not necessary at this time. CT of the face and cervical spine were obtained however and did not demonstrate any acute findings, specifically no facial bone fractures. With bleeding being controlled, and patient being clinically well and nontoxic-appearing at this time, will discharge home with proper wound care instructions. Reasons to return were discussed and she is to follow-up with primary care. Lab Data Radiology Impressions Cervical Spine CT 02/24/24 16:18 IMPRESSION: No acute cervical spine findings. Face CT 02/24/24 16:18 IMPRESSION: No acute facial bone fracture. All radiology interpretation(s) finalized by discharge Discharge Plan Discharge Patient Disposition: Home Clinical Impression: Contusion of face Qualifiers: Encounter type: initial encounter Qualified Code(s): S00.83XA - Contusion of other part of head, initial encounter Contusion of knee, right Qualifiers: Encounter type: initial encounter Qualified Code(s): S80.01XA - Contusion of right knee, initial encounter Condition: Stable Prescriptions: No Action Dulera 200-5 mcg/actuation HFA aerosol inhaler 2 puff inhalation BID fluticasone propionate [Flonase Allergy Relief] 50 mcg/actuation spray,suspension 1 spray intranasal DAILY Rx Instructions: administer into each nostril fexofenadine [Shima Allergy] 180 mg tablet 180 mg PO DAILY ibuprofen 200 mg tablet 600 mg PO BID montelukast [Singulair] 10 mg tablet 10 mg PO DAILY escitalopram oxalate 20 mg tablet 20 mg PO DAILY amlodipine 10 mg tablet 10 mg PO DAILY hydrochlorothiazide 25 mg tablet 25 mg PO DAILY lisinopril 20 mg tablet 20 mg PO DAILY nitroglycerin 0.4 mg tablet, sublingual 0.4 mg sublingual Q5M PRN (Reason: chest pain) Qty: 25 2RF Rx Instructions: do not exceed 3 doses per episode albuterol sulfate 90 mcg/actuation HFA aerosol inhaler 2 inh INHALATION Q4H PRN (Reason: shortness of breath or wheezing) Qty: 18 0RF aspirin 81 mg tablet,delayed release (DR/EC) 81 mg PO DAILY Qty: 30 0RF famotidine 20 mg tablet 20 mg PO BID Discharge Orders: Discharge ED (Routine); Ordered 02/24/24 Ordered By: Everardo Lomas Referrals: Liliam Bernardo DO [Primary Care Provider] - Discharge Diet: Usual diet Discharge Activity: Increase activity as tolerated Patient Instructions: Facial Contusion (ED) Activity Restrictions/Additional Instructions: Ice to affected areas as discussed. Tylenol and ibuprofen. Avoid reinjury, and return for any further complaints or concerning symptoms you may have. Please follow-up with primary care as discussed. 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
[2024-02-24 17:49] VITALS: BP 157/92; PULSE 69; RESP 16; O2SAT 98
== END 2024-02-24 17:45 | disposition home or self-care (01) ==
PROVIDERS: Emergency Provider Physician Assistant; PCP Family Medicine
DX: S00.83XA Contusion of other part of head, initial encounter (principal); S80.01XA Contusion of right knee, initial encounter; Z79.82 Long term (current) use of aspirin; S60.512A Abrasion of left hand, initial encounter; S60.511A Abrasion of right hand, initial encounter; I10 Essential (primary) hypertension; W01.0XXA Fall on same level from slipping, tripping and stumbling without subsequent striking against object, initial encounter
CPT/HCPCS: 70486; 72125; 99284

== ENCOUNTER 2025-03-19 14:14 | Outpatient (CLI) | payer MEDICARE, MEDICAID, SELFPAY ==
--- NOTE | 2025-03-19 14:20 | MM_ITS ---
WS: [id number] BILATERAL 3D TOMOSYNTHESIS DIGITAL SCREENING MAMMOGRAPHY WITH CAD CLINICAL INFORMATION: SCREENING HISTORY: Screening mammogram. No current complaints. COMPARISON: 2022 TECHNIQUE: Bilateral CC and MLO views. FINDINGS: Scattered fibroglandular densities bilaterally. No suspicious focal mass, asymmetry, calcifications, or architectural distortion. No evidence of malignancy. MM/MM scr BI tomosynthesis [id number] IMPRESSION: DENSITY: There are scattered areas of fibroglandular density. BI-RADS: 1 - Negative. FOLLOW UP: 1 Year Follow-up Recommend return to annual screening mammography.
== END 2025-03-19 14:15 | disposition home or self-care (01) ==
LOC: RAD 14:17
PROVIDERS: PCP Family Medicine; Visit Provider Family Medicine
DX: Z12.31 Encounter for screening mammogram for malignant neoplasm of breast (principal); R92.323 Mammographic fibroglandular density, bilateral breasts
CPT/HCPCS: 77063; 77067